=== PATIENT | female | born 1960 | race Caucasian/White ===

== ENCOUNTER 2022-12-11 15:22 | Inpatient (IN) | payer BC ==
[~2022-12-11] VITALS: Ht 162.6 cm; Wt 81.6 kg
[2022-12-11 15:58] LABS: BASOPHILS # (AUTO) 0.1 X10'3 (0-0.2); BASOPHILS % (AUTO) 1.4 % (0-1); EOSINOPHILS # (AUTO) 0.4 X10'3 (0-0.9); EOSINOPHILS % (AUTO) 5.7 % (0-6); HEMATOCRIT 40.6 % (35.0-45.0); HEMOGLOBIN 13.8 g/dl (12.0-16.0); LYMPHOCYTES # (AUTO) 1.6 X10'3 (1.1-4.8); MEAN CORPUSCULAR HEMOGLOBIN 29.5 PG (27.0-31.0); MEAN CORPUSCULAR HGB CONC 33.9 g/dL (33.0-36.5); MEAN CORPUSCULAR VOLUME 87.1 FL (78-98); MEAN PLATELET VOLUME 8.2 FL (7.4-10.4); MONOCYTES # (AUTO) 0.2 X10'3 (0-0.9); MONOCYTES % (AUTO) 2.7 % (2-12); NEUTROPHILS # (AUTO) 5.2 X10'3 (1.8-7.7); NEUTROPHILS % (AUTO) 69.2 % (42-75); PLATELET COUNT 224 X10'3 (140-440); RED BLOOD COUNT 4.67 X10'6 (4.20-5.60); RED CELL DISTRIBUTION WIDTH 14.3 % (11.5-14.5); WHITE BLOOD COUNT 7.5 X10'3 (4.5-11.0)
[2022-12-11 16:08] LABS: ALANINE AMINOTRANSFERASE 44 U/L (12-78); ALBUMIN 4.2 G/DL (3.4-5.0); ALBUMIN/GLOBULIN RATIO 1.1 (1.1-1.5); ALKALINE PHOSPHATASE 67 IU/L (46-116); ANION GAP 9 (8-16); ASPARTATE AMINO TRANSFERASE 24 U/L (10-37); BILIRUBIN,TOTAL 0.4 MG/DL (0.1-1.0); BLOOD UREA NITROGEN 15 MG/DL (7-18); BUN/CREATININE RATIO 17.4 (10.0-20.0); CALCIUM 9.8 MG/DL (8.5-10.1); CHLORIDE 102 MMOL/L (99-107); CREATININE 0.86 MG/DL (0.40-0.90); GLUCOSE 122 MG/DL (70-104); POTASSIUM 3.6 MMOL/L (3.5-5.1); SODIUM 139 MMOL/L (135-145); TOTAL CARBON DIOXIDE 27.9 MMOL/L (24-32); TOTAL PROTEIN 7.9 G/DL (6.4-8.2); eCRCL 58 ML/MIN; eGFR 67 ML/MIN
[2022-12-11 16:15] LABS: PRO BRAIN NATRIURETIC PEPTIDE 170 PG/ML (0-125)
[2022-12-12] VITALS (11 sets, daily range): BP systolic 136–183; BP diastolic 58–84; PULSE 63–113; RESP 14–18; TEMP 97.8; O2SAT 97–99
--- NOTE | 2022-12-12 00:42 | NUR ---
ASSUMED CARE FROM KARYNA BECKER.
[2022-12-12] MEDS ORDERED: aspirin 325mg tablet PO ONE (00:45)
[2022-12-12] MEDS ORDERED: ondansetron/PF 4mg/2ml inj IV PRN (00:55)
[2022-12-12] MEDS ORDERED: acetaminophen 325mg tablet PO PRN ×2 (00:55)
[2022-12-12] MEDS ORDERED: magnesium 4gm in 100ml NS 100 ML IV PRN (00:55)
[2022-12-12] MEDS ORDERED: HYDROcodone/acetaminophen 5mg/325mg tablet PO PRN (00:55)
[2022-12-12] MEDS ORDERED: magnesium Cl slow-release 64mg tablet PO PRN (00:55)
[2022-12-12] MEDS ORDERED: HYDROcodone/acetaminophen 10/325mg tab PO PRN (00:55)
[2022-12-12] MEDS ORDERED: potassium Cl 20 mEq SR tablet PO PRN ×2 (00:55)
[2022-12-12] MEDS ORDERED: magnesium 2GM in 50ml NS 50 ML IV PRN (00:55)
[2022-12-12] MEDS ORDERED: potassium Cl 40MEQ/1/2NS 520ml 520 ML IV PRN (00:55)
[2022-12-12] MEDS ORDERED: morphine 2 MG/ML inj. syringe IV PRN ×2 (00:55)
[2022-12-12] MEDS ORDERED: LEVO50TA PO (00:56)
[2022-12-12] MEDS ORDERED: OLME5TAB32 PO (00:56)
[2022-12-12] MEDS ORDERED: LEVO75TA PO (00:56)
[2022-12-12] MEDS ORDERED: BUDE10.2 INH (00:56)
[2022-12-12] MEDS ORDERED: MONT-47 PO (00:56)
[2022-12-12] MEDS ORDERED: ROSU5TAB PO (00:56)
[2022-12-12] MEDS ORDERED: HYDR12.55 PO (00:56)
[2022-12-12] MEDS: normal saline 1000ml 1,000 ML IV SCH ×2 (01:50→08:20)
--- NOTE | 2022-12-12 06:49 | NUR ---
NM TECH AT BEDSIDE TO DISCUSS STRESS TEST PROCESS AT THIS TIME. ALL QUESTIONS AND CONCERNS ADDRESSED.
--- NOTE | 2022-12-12 06:51 | NUR ---
Nuclear medicine is requesting NPO for stress test
[2022-12-12] MEDS ORDERED: levoTHYROXINE 75mcg tablet PO SCH (07:30)
[2022-12-12] MEDS ORDERED: losartan 50mg tablet PO SCH (08:00)
[2022-12-12] MEDS ORDERED: HYDROchlorothiazide 12.5mg capsule PO SCH (08:00)
[2022-12-12] MEDS ORDERED: heparin, porcine 5000 units/ml vial SQ SCH (08:00)
[2022-12-12] MEDS ORDERED: ROSUVASTATIN CALCIUM 5 MG TABLET PO SCH (08:00)
[2022-12-12] MEDS ORDERED: pantoprazole 40mg Tablet.DR PO SCH (08:00)
--- NOTE | 2022-12-12 08:03 | NUR ---
Holding morning meds Pt NPO til after alyssa scan
[2022-12-12] MEDS ORDERED: albuterol 2.5 MG/3 ML nebule NEB SCH (09:00)
[2022-12-12] MEDS ORDERED: budesonide 0.5mg/2ml UD nebule IH SCH (09:00)
[2022-12-12 09:59] LABS: THYROID STIMULATING HORMONE 2.25 ulU/ml (0.34-4.50)
--- NOTE | 2022-12-12 10:15 | NUR ---
pt to nuc med on monitor with RN, Pt is able to transfer self without assist from bed to wheelchair. Pt is GCS 14, a/o x3, resp even and unlabored, skin p/w/d. SR on monitor no ectopy
[2022-12-12] MEDS ORDERED: regadenoson 0.4mg/5ml syringe IV ONE (11:00)
[2022-12-12] MEDS ORDERED: aminophylline inj. 0 ML IV ONE (11:09)
--- NOTE | 2022-12-12 11:31 | NUR ---
attempted report to recovery, nurse will call back
--- NOTE | 2022-12-12 11:48 | NUR ---
REPORT GIVEN TO RECOVERY NURSE, WILL TAKE PT TO RECOVERY ROOM AFTER STRESS TEST IS FINISHED
--- NOTE | 2022-12-12 12:40 | NUR ---
RECEIVED REPORT FROM KENNA ([facility]). PATIENT ALERT, AWAKE ORIENTED. NO S/S OF PAIN AT THIS TIME. RIGHT HAND PIV 22G. DRESSING C/D/I. VSS. WILL KEEP MONITORING.
[2022-12-12] MEDS ORDERED: NITR0.4T51 SL (15:18)
[2022-12-12] MEDS ORDERED: AMLO5TAB16 PO (15:18)
--- NOTE | 2022-12-12 15:43 | NUR ---
ALL DISCHARGE CRITERIA HAS BEEN MET. VSS, PAIN AT A TOLERABLE LEVEL, ABLE TO SAFELY AMBULATE AND TRANSFER SELF. IV TAKEN OUT WITHOUT ANY COMPLICATIONS. ALL DISCHARGE INSTRUCTIONS COVERED WITH PATIENT AND ALL QUESTIONS ANSWERED. PATIENT AMBULATED TO HER OWN VEHICLE WITHOUT ANY DISTRESS. ALL PERSONAL BELONGING SENT WITH PATIENT.
[2022-12-12] MEDS ORDERED: montelukast 10mg tablet PO SCH (21:00)
[2022-12-12] MEDS ORDERED: temazepam 15mg capsule PO PRN (21:00)
== END 2022-12-12 15:48 | disposition home or self-care (01) | DRG 311 ==
LOC: ER 15:23 → ED HOLD 12-12 01:01 → EDBEDREQ 12-12 11:25
PROVIDERS: ADMIT Internal Medicine; ATTEND Family Medicine
PROC: 4A02XM4 Measurement of Cardiac Total Activity, External Approach (ICD-10-PCS; principal; 2022-12-12)
PROC: 3E073KZ Introduction of Other Diagnostic Substance into Coronary Artery, Percutaneous Approach (ICD-10-PCS; 2022-12-12)
DX: I24.9 Acute ischemic heart disease, unspecified (principal); I10 Essential (primary) hypertension; Z20.822 Contact with and (suspected) exposure to COVID-19; Z79.899 Other long term (current) drug therapy; Z88.2 Allergy status to sulfonamides
CPT/HCPCS: 36415; 71045; 78452; 80053; 83880; 84443; 84484; 85025; 87811; 93005; 93017; 94640; 94760; 99285; A9500; G0378; J0280; J2785; J7030